=== PATIENT | female | born 1965 | race Caucasian/White ===

== ENCOUNTER 2017-02-19 08:51 | Emergency (ER) | payer MEDICAID, OTHER ==
[~2017-02-19] VITALS: Ht 162.6 cm; Wt 93.0 kg
[2017-02-19 08:57] VITALS: BP 137/86
--- NOTE | 2017-02-19 09:02 | NUR ---
PATIENT TO BED 5 AT THIS TIME.
--- NOTE | 2017-02-19 09:09 | NUR ---
52/F PRESENT TO ER C/O ABDOMINAL PAIN x 5 DAYS.PT STATES SHE TOOK IBUPROFEN BUT DIDN'T HELP HER.PAIN IS LOCATED AT [facility].PAIN SCALE OF 5/10.HX OF HTN AND MIGRAINE;DENIES CP/SOB/N/V/F/COUHGH.SKIN WARM TO TOUCH.PT AAOX4;SKIN WARM TO TOUCHNO ACUTE DISTRESS NOTED AT THIS TIME;HOB ELEVATED;NEEDS ATTENDED;SAFETY PREACUTION INSTITUTED; MADE AWARE OF PT'S CONDITION;
--- NOTE | 2017-02-19 09:13 | NUR ---
DR RUTHERFORD AT BEDSIDE
--- NOTE | 2017-02-19 09:27 | NUR ---
PT WENT TO XRAY ACCOMPANIED BY X RAY NURSE.NO ACUTE DISTRESS NOTED AT THIS TIME.
--- NOTE | 2017-02-19 09:36 | NUR ---
PT BACK FROM XRAY NO ACUTE DISTRESS NOTED AT THIS TIME
--- NOTE | 2017-02-19 10:11 | NUR ---
PT LYING ON BED COMFORTABLY;NO ACUTE DISTRESS NOTED AT THIS TIME;WILL CONTINUE TO MONITOR PT.
--- NOTE | 2017-02-19 10:27 | NUR ---
Patient discharged with v/s stable. Written and verbal after care instructions given and explained. Patient alert, oriented and verbalized understanding of instructions. Ambulatory with steady gait. All questions addressed prior to discharge. ID band removed. Patient advised to follow up with PMD. Rx of MIRALAX POWDER given. Patient educated on indication of medication including possible reaction and side effects. Opportunity to ask questions provided and answered.ADVISED PT TO EAT FOODS RICH IN FIBER AND INCREASE FLUID INTAKE.
[2017-02-19 10:29] VITALS: BP 127/73
== END 2017-02-19 10:27 | disposition home or self-care (01) ==
LOC: MED 08:51
DX: K59.00 Constipation, unspecified (principal); E11.9 Type 2 diabetes mellitus without complications; I10 Essential (primary) hypertension
CPT/HCPCS: 74022; 81002; 81025; 99284